=== PATIENT | female | born 1975 | race African-American/Black ===

== ENCOUNTER 2018-07-14 15:56 | Emergency (ER) | payer OTHER ==
[2018-07-14] MEDS ORDERED: AMMONIA INHALANTS 10 AMPUL/BOX IH ONE (16:51)
[2018-07-14] MEDS ORDERED: LORAZEPAM INJ 2 MG/1 ML VIAL IV ONE ×2 (17:20→19:09)
[2018-07-14] MEDS ORDERED: NORMAL SALINE 1000 ML 1,000 ML IV ONE ×3 (17:21→20:40)
--- NOTE | 2018-07-14 17:23 | ER Document Report ---
Addendum entered and electronically signed by KODAK FARIA MD 07/15/18 12:58: Discharge - Discharge Clinical Impression: History of depression, Pseudoseizure, Elevated CK, Seizure-like activity Condition: Good Disposition: HOME, SELF-CARE Instructions: Altered Mental Status ([facility]), New Seizure ([facility]) Additional Instructions: You will need evaluation by her primary care physician and possibly neurology before returning to work or driving. Please do not drive until cleared by your primary care physician and neurology. Follow up with your [id number] hours for further care or return to the ED IMMEDIATELY if symptoms worsen or you have any concerns. If you cannot afford to follow up with your primary care physician a list of low cost clinics have been provided at the end of your discharge papers as well. Most prescribed medications have multiple side effects. The safest thing to do is when filling your prescription speak to your pharmacist regarding possible interactions with your normal home medications and over the counter medications such as Ibuprofen, Tylenol, Benadryl. If you experience any symptoms that cause you discomfort or concern you should discontinue the medication immediately and return to the emergency room or call your primary care physician. Altered Mental Status An altered mental status is a change in the normal functioning of the brain. This alteration of function can range from minor decreased brain function with some forgetfulness and confusion to complete loss of consciousness and coma. There are many possible causes of an altered mental status and include brain injuries such as trauma or strokes, problems with oxygen supply to the brain, fever and infections of the brain and/or elsewhere in the body, metabolic abnormalities such as low or high blood sugar, overdoses or excessive medication ingestion, and mental and psychiatric illnesses. Sometimes the altered mental status resolves and a definite cause is not determined. If a cause for your altered mental status was found, it has likely been corrected. Your evaluation has not shown any condition that requires that you be admitted to the hospital. It is believed that you are safe to leave and return to your home. If you have a return of your symptoms, you should return for re-evaluation. Prescriptions: Ondansetron [Zofran Odt 4 mg Tablet] 1 - 2 tab PO Q4H PRN #15 tab.rapdis PRN Reason: For Nausea/Vomiting Addendum entered and electronically signed by KODAK FARIA MD 07/15/18 12:01: Discharge - Discharge Clinical Impression: History of depression, Pseudoseizure, Elevated CK, Seizure-like activity Condition: Good Disposition: HOME, SELF-CARE Instructions: Altered Mental Status ([facility]), New Seizure ([facility]) Additional Instructions: You will need evaluation by her primary care physician and possibly neurology be fore returning to work or driving. Please do not drive until cleared by your primary care physician and neurology. Follow up with your [id number] hours for further care or return to the ED IMMEDIATELY if symptoms worsen or you have any concerns. If you cannot afford to follow up with your primary care physician a list of low cost clinics have been provided at the end of your discharge papers as well. Most prescribed medications have multiple side effects. The safest thing to do is when filling your prescription speak to your pharmacist regarding possible interactions with your normal home medications and over the counter medications such as Ibuprofen, Tylenol, Benadryl. If you experience any symptoms that cause you discomfort or concern you should discontinue the medication immediately and return to the emergency room or call your primary care physician. Altered Mental Status An altered mental status is a change in the normal functioning of the brain. This alteration of function can range from minor decreased brain function with some forgetfulness and confusion to complete loss of consciousness and coma. There are many possible causes of an altered mental status and include brain injuries such as trauma or strokes, problems with oxygen supply to the brain, fever and infections of the brain and/or elsewhere in the body, metabolic ab normalities such as low or high blood sugar, overdoses or excessive medication ingestion, and mental and psychiatric illnesses. Sometimes the altered mental status resolves and a definite cause is not determined. If a cause for your altered mental status was found, it has likely been corrected. Your evaluation has not shown any condition that requires that you be admitted to the hospital. It is believed that you are safe to leave and return to your home. If you have a return of your symptoms, you should return for re-evaluation. Addendum entered and electronically signed by COLE BOSWELL LCSWA 07/15/18 10:13: Discharge - Discharge Clinical Impression: History of depression, Pseudoseizure, Elevated CK, Seizure-like activity Condition: Good Disposition: HOME, SELF-CARE Instructions: Altered Mental Status ([facility]), New Seizure ([facility]) Additional Instructions: You will need evaluation by her primary care physician and possibly neurology before returning to work or driving. Please do not drive until cleared by your primary care physician and neurology. Follow up with your [id number] hours for further care or return to the ED IMMEDIATELY if symptoms worsen or you have any concerns. If you cannot afford to follow up with your primary care physician a list of low cost clinics have been provided at the end of your discharge papers as well. Most prescribed medications have multiple side effects. The safest thing to do is when filling your prescription speak to your pharmacist regarding possible interactions with your normal home medications and over the counter medications such as Ibuprofen, Tylenol, Benadryl. If you experience any symptoms that cause you discomfort or concern you should discontinue the medication immediately and return to the emergency room or call your primary care physician. Altered Mental Status An altered mental status is a change in the normal functioning of the brain. This alteration of function can range from minor decreased brain function with some forgetfulness and confusion to complete loss of consciousness and coma. There are many possible causes of an altered mental status and include brain injuries such as trauma or strokes, problems with oxygen supply to the brain, fever and infections of the brain and/or elsewhere in the body, metabolic abnormalities such as low or high blood sugar, overdoses or excessive medication ingestion, and mental and psychiatric illnesses. Sometimes the altered mental status resolves and a definite cause is not determined. If a cause for your altered mental status was found, it has likely been corrected. Your evaluation has not shown any condition that requires that you be admitted to the hospital. It is believed that you are safe to leave and return to your home. If you have a return of your symptoms, you should return for re-evaluation. Original Note: ED General - General Chief Complaint: Probable Seizure Stated Complaint: POSSIBLE SEIZURE Time Seen by Provider: 07/14/18 17:04 Mode of Arrival: Medic Information source: Patient, Relative, Friend, [facility] Records Notes: 42-year-old female with depression (currently noncompliant with her depression medication) presents via EMS from school where she displayed altered mental stat us, jerking-like movements. Patient's boss is at the bedside and states that just after walking the kids out to the bus she was leaning against the wall when 1 of her coworkers noted that she did not appear well. Patient confirmed this and then lowered herself to the ground. Witness states that the patient did not hit her head. Patient was having full body jerking. She does report recent upper respiratory infection for which she started doxycycline. Patient has no psychiatric history. Upon my arrival into the room patient is alert, awake and states that she has a headache. Patient reports that she has had a headache intermittently for 3 weeks and describes it as a "sinus headache". She admits to nasal congestion, rhinorrhea, sore throat. - HPI Onset: Just prior to arrival Onset/Duration: Sudden Quality of pain: Achy, Throbbing Severity: Mild Associated symptoms: Nonproductive cough, Headache. denies: Diarrhea, Hurts to breath, Nausea, Vomiting, Shortness of breath Exacerbated by: Denies Relieved by: Denies Similar symptoms previously: No Recently seen / treated by doctor: No - Related Data Allergies/Adverse Reactions: hydrocodone Allergy (Verified 07/14/18 15:59) Penicillins Allergy (Verified 07/14/18 15:59) Sulfa (Sulfonamide Antibiotics) Allergy (Verified 07/14/18 15:59) Past Medical History - General Information source: Patient, Relative, [facility] Records - Social History Smoking Status: Never Smoker Frequency of alcohol use: None Drug Abuse: None Lives with: Family, Spouse/Significant other Family History: Reviewed & Not Pertinent Patient has suicidal ideation: No Patient has homicidal ideation: No - Medical History Medical History: Negative Review of Systems - Review of Systems Notes: REVIEW OF SYSTEMS: CONSTITUTIONAL : Denies fever, chills, or sweats. + recent illness. Denies weight loss, recent hospitalizations. EENT: Denies visual changes, eye pain. Denies sore throat, oral lesions, difficulty swallowing. CARDIOVASCULAR: Denies chest pain. Denies palpitations. Denies lower extremity edema. RESPIRATORY: Denies cough. Denies shortness of breath, wheezing. GASTROINTESTINAL: Denies abdominal pain or distention. Denies nausea, vomiting, or diarrhea. Denies blood in vomitus, stools, or per rectum. Denies black, tarry stools. Denies constipation. GENITOURINARY: Denies difficulty urinating, painful urination, frequency, blood in urine, or vaginal discharge. MUSCULOSKELETAL: Denies back or neck pain or stiffness. Denies joint pain or swelling. SKIN: Denies rash, lesions or sores. HEMATOLOGIC : Denies easy bruising or bleeding. LYMPHATIC: Denies swollen glands. NEUROLOGICAL: Denies confusion or altered mental status. Denies loss of consciousness. Denies dizziness or lightheadedness. + Headache. denies weakness or paralysis. Denies problems difficulty with ambulation, slurred speech. Denies sensory loss, numbness, or tingling. Denies seizures. PSYCHIATRIC: Denies anxiety or stress. Denies depression, suicidal ideation, or homicidal ideation. Denies visual or auditory hallucinations. Physical Exam - Vital signs Vitals: Temp Pulse Resp BP Pulse Ox 98.5 F 94 18 119/64 99 07/14/18 15:58 07/14/18 15:58 07/14/18 15:58 07/14/18 15:58 07/14/18 15:58 - Notes Notes: PHYSICAL EXAMINATION: GENERAL: Alert, awake well-appearing, well-nourished and in no acute distress. HEAD: Atraumatic, normocephalic. EYES: Pupils equal round and reactive to light, extraocular movements intact, conjunctiva are normal. ENT: Nares patent, oropharynx clear without exudates. Moist mucous membranes. NECK: Normal range of motion, supple without lymphadenopathy LUNGS: Breath sounds clear to auscultation bilaterally and equal. No wheezes rales or rhonchi. HEART: Regular rate and rhythm without murmurs ABDOMEN: Soft, nontender, nondistended abdomen. No guarding, no rebound. No masses appreciated. Female : deferred Musculoskeletal: Normal range of motion, no pitting or edema. No cyanosis. NEUROLOGICAL: Cranial nerves grossly intact. Normal speech, normal gait. Normal sensory, motor exams. Intermittent episodes of full body shaking with immediate return to normal, speaking, following commands. PSYCH: Normal mood, normal affect. SKIN: Warm, Dry, normal turgor, no rashes or lesions noted. Course - Re-evaluation Re-evalutation: 07/14/18 20:21 Laboratory 07/14/18 07/14/18 07/14/18 16:54 16:54 18:28 WBC 11.9 H RBC 5.17 Hgb 14.0 Hct 40.1 MCV 78 L MCH 27.0 MCHC 34.9 RDW 13.5 Plt Count 201 Seg Neutrophils % 77.1 Lymphocytes % 17.3 Monocytes % 4.8 Eosinophils % 0.6 Basophils % 0.2 Absolute Neutrophils 9.2 H Absolute Lymphocytes 2.1 Absolute Monocytes 0.6 Absolute Eosinophils 0.1 Absolute Basophils 0.0 Sodium Potassium Chloride Carbon Dioxide Anion Gap BUN Creatinine Est GFR ( Amer) Est GFR (Non-Af Amer) Glucose Calcium Total Bilirubin Direct Bilirubin Neonat Total Bilirubin Neonat Direct Bilirubin Neonat Indirect Bili AST ALT Alkaline Phosphatase Creatine Kinase Total Protein Albumin Beta HCG, Quant Total Beta HCG Urine Color STRAW Urine Appearance CLEAR Urine pH 6.0 Ur Specific [place] 1.010 Urine Protein NEGATIVE Urine Glucose (UA) NEGATIVE Urine Ketones NEGATIVE Urine Blood NEGATIVE Urine Nitrite NEGATIVE Urine Bilirubin NEGATIVE Urine Urobilinogen NEGATIVE Ur Leukocyte Esterase NEGATIVE Urine WBC (Auto) 1 Squamous Epi Cells Auto 2 Urine Ascorbic Acid NEGATIVE Urine HCG, Qual NEGATIVE Urine Opiates Screen NEGATIVE Urine Methadone Screen NEGATIVE Ur Barbiturates Screen NEGATIVE Ur Phencyclidine Scrn NEGATIVE Ur Amphetamines Screen NEGATIVE U Benzodiazepines Scrn NEGATIVE Urine Cocaine Screen NEGATIVE U Marijuana (THC) Screen NEGATIVE 07/14/18 18:28 WBC RBC Hgb Hct MCV MCH MCHC RDW Plt Count Seg Neutrophils % Lymphocytes % Monocytes % Eosinophils % Basophils % Absolute Neutrophils Absolute Lymphocytes Absolute Monocytes Absolute Eosinophils Absolute Basophils Sodium 140.8 Potassium 4.2 Chloride 109 H Carbon Dioxide 21 L Anion Gap 11 BUN 12 Creatinine 0.81 Est GFR ( Amer) > 60 Est GFR (Non-Af Amer) > 60 Glucose 86 Calcium 8.6 Total Bilirubin 0.4 Direct Bilirubin 0.3 Neonat Total Bilirubin Not Reportable Neonat Direct Bilirubin Not Reportable Neonat Indirect Bili Not Reportable AST 42 H ALT 64 H Alkaline Phosphatase 81 Creatine Kinase 1097 H Total Protein 7.0 Albumin 4.0 Beta HCG, Quant < 2.39 Total Beta HCG NEGATIVE Urine Color Urine Appearance Urine pH Ur Specific [place] Urine Protein Urine Glucose (UA) Urine Ketones Urine Blood Urine Nitrite Urine Bilirubin Urine Urobilinogen Ur Leukocyte Esterase Urine WBC (Auto) Squamous Epi Cells Auto Urine Ascorbic Acid Urine HCG, Qual Urine Opiates Screen Urine Methadone Screen Ur Barbiturates Screen Ur Phencyclidine Scrn Ur Amphetamines Screen U Benzodiazepines Scrn Urine Cocaine Screen U Marijuana (THC) Screen Head CT 07/14/18 17:19 IMPRESSION: NORMAL BRAIN CT WITHOUT CONTRAST. EVIDENCE OF ACUTE STROKE: NO. Temp Pulse Resp BP Pulse Ox 98.5 F 94 32 H 109/72 97 07/14/18 15:58 07/14/18 15:58 07/14/18 19:01 07/14/18 19:01 07/14/18 19:01 Patient declining evaluation by behavioral health. 07/14/18 20:37 at the bedside and patient now agreeable to behavioral health evaluation and patient now agreeable to behavioral health evaluation in the morning. 42-year-old female with a history of depression compliant with her depression medication presents via EMS after episodes of full body jerking, altered mental status. Vital signs reviewed upon arrival and patient is mildly tachycardic. She is alert, awake and without any neuro deficits. I witnessed patient's full body jerking which lasted approximately 10 seconds with immediate return to a normal baseline with immediately speak clearly, following commands. and patient's boss is at the bedside. I did explain to both the patient and her that I do not believe this is a true seizure, these are brief, episodes of tonic clonic movement with eyes open, no confusion,respiratory depression, urinary incontinence, tongue laceration. Nothing on her evaluyation indicates, infection, encephalopathy, true seizure, brain mass, bleed. Patient does admit to increased stress at home and at work. Denies any prior similar symptoms. CT of the brain was obtained and showed no acute process. CBC is without leukocytosis or anemia. CMP does show mild elevation in the patient's LFTs. CK is mildly elevated likely secondary to episodes of shaking. Patient has received IV fluids, Zofran and IV Ativan. Reports feeling better and giving me thumbs up after receiving ativan. Patient intitially refusing behavioral health eval but not agrees. Consult for behavioral health was placed. Patient is voluntary and can be discharge at any time. 07/15/18 00:42 - Vital Signs Vital signs: Temp Pulse Resp BP Pulse Ox 98.5 F 94 26 H 110/69 96 07/14/18 15:58 07/14/18 15:58 07/14/18 22:01 07/14/18 22:01 07/14/18 22:01 - Laboratory Result Diagrams: 07/14/18 18:28 07/14/18 18:28 Laboratory results interpreted by me: 07/14/18 07/14/18 18:28 18:28 WBC 11.9 H MCV 78 L Absolute Neutrophils 9.2 H Chloride 109 H Carbon Dioxide 21 L AST 42 H ALT 64 H Creatine Kinase 1097 H - Diagnostic Test Radiology reviewed: Image reviewed, Reports reviewed Discharge - Discharge Clinical Impression: History of depression, Pseudoseizure, Elevated CK, Seizure-like activity Condition: Good Disposition: OTHER Instructions: New Seizure ([facility]), Altered Mental Status ([facility]) Additional Instructions: You will need evaluation by her primary care physician and possibly neurology before returning to work or driving. Please do not drive until cleared by your primary care physician and neurology. Follow up with your [id number] hours for further care or return to the ED IMMEDIATELY if symptoms worsen or you have any concerns. If you cannot afford to follow up with your primary care physician a list of low cost clinics have been provided at the end of your dis charge papers as well. Most prescribed medications have multiple side effects. The safest thing to do is when filling your prescription speak to your pharmacist regarding possible interactions with your normal home medications and over the counter medications such as Ibuprofen, Tylenol, Benadryl. If you experience any symptoms that cause you discomfort or concern you should discontinue the medication immediately and return to the emergency room or call your primary care physician. Altered Mental Status An altered mental status is a change in the normal functioning of the brain. This alteration of function can range from minor decreased brain function with some forgetfulness and confusion to complete loss of consciousness and coma. There are many possible causes of an altered mental status and include brain injuries such as trauma or strokes, problems with oxygen supply to the brain, fever and infections of the brain and/or elsewhere in the body, metabolic abnormalities such as low or high blood sugar, overdoses or excessive medication ingestion, and mental and psychiatric illnesses. Sometimes the altered mental status resolves and a definite cause is not determined. If a cause for your altered mental status was found, it has likely been katia ected. Your evaluation has not shown any condition that requires that you be admitted to the hospital. It is believed that you are safe to leave and return to your home. If you have a return of your symptoms, you should return for re- evaluation.
--- NOTE | 2018-07-14 18:27 | RADIOLOGY REPORT (SQ) ---
EXAM DESCRIPTION: CT HEAD WITHOUT COMPLETED DATE/TIME: 07/14/2018 6:16 pm REASON FOR STUDY: jerking COMPARISON: None. TECHNIQUE: Axial images acquired through the brain without intravenous contrast. Images reviewed wi th bone, brain and subdural windows. Additional sagittal and coronal reconstructions were generated. Images stored on PACS. All CT scanners at this facility use dose modulation, iterative reconstruction, and/or weight based d osing when appropriate to reduce radiation dose to as low as reasonably achievable (ALARA). [facility]: Dose Right [facility]: CareDose [facility]: Dose Right [facility]: Teradose 4D [facility]: iSites RADIATION DOSE: CT Rad equipment meets quality standard of care and radiation dose reduction techniq ues were employed. CTDIvol: 53.2 mGy. DLP: 1017 mGy-cm. mGy. LIMITATIONS: None. FINDINGS: VENTRICLES: Normal size and contour. CEREBRUM: No masses. No hemorrhage. No midline shift. No evidence for acute infarction. Normal gra y/white matter differentiation. No areas of low density in the white matter. CEREBELLUM: No masses. No hemorrhage. No alteration of density. No evidence for acute infarction. EXTRAAXIAL SPACES: No fluid collections. No masses. ORBITS AND GLOBE: No intra- or extraconal masses. Normal contour of globe without masses. CALVARIUM: No fracture. PARANASAL SINUSES: No fluid or mucosal thickening. SOFT TISSUES: No mass or hematoma. OTHER: No other significant finding. IMPRESSION: NORMAL BRAIN CT WITHOUT CONTRAST. EVIDENCE OF ACUTE STROKE: NO. COMMENT: Quality ID # [id number]: Final reports with documentation of one or more dose reduction techniques (e.g., Automated exposure control, adjustment of the mA and/or kV according to patient size, use of iterative reconstruction technique) TECHNICAL DOCUMENTATION: JOB ID: [id number] [employer]- All Rights Reserved Reading location - IP/workstation name: [email or web address]
[2018-07-14 18:28] LABS: APPEARANCE,URINE CLEAR; BILIRUBIN,URINE NEGATIVE (NEGATIVE); COLOR,URINE STRAW; GLUCOSE, URINE NEGATIVE (NEGATIVE); KETONES,URINE NEGATIVE (NEGATIVE); LEUKOCYTE ESTERASE,URINE NEGATIVE (NEGATIVE); NITRITE,URINE NEGATIVE (NEGATIVE); PROTEIN,URINE NEGATIVE (NEGATIVE); UROBILINOGEN,URINE NEGATIVE mg/dL (<2.0)
[2018-07-14 18:42] LABS: URINE AMPHETAMINES SCREEN NEGATIVE; URINE BARBITURATES SCREEN NEGATIVE; URINE BENZODIAZEPINES SCREEN NEGATIVE; URINE COCAINE SCREEN NEGATIVE; URINE MARIJUANA (THC) SCREEN NEGATIVE; URINE METHADONE SCREEN NEGATIVE; URINE PHENCYCLIDINE SCREEN NEGATIVE
[2018-07-14 18:43] LABS: ABSOLUTE EOSINOPHILS # (AUTO) 0.1 10^3/uL (0.0-0.6); ABSOLUTE LYMPHOCYTES (AUTO) 2.1 10^3/uL (0.5-4.7); ABSOLUTE MONOCYTES (AUTO) 0.6 10^3/uL (0.1-1.4); ABSOLUTE NEUT (AUTO) 9.2 10^3/uL (1.7-8.2); BASOPHILS % (AUTO) 0.2 % (0-2); EOSINOPHILS % (AUTO) 0.6 % (0-6); HEMATOCRIT 40.1 % (36.0-47.0); LYMPHOCYTES % (AUTO) 17.3 % (13-45); MEAN CORPUSCULAR HGB CONC 34.9 g/dL (32.0-36.0); MEAN CORPUSCULAR VOLUME 78 fl (80-97); MONOCYTES % (AUTO) 4.8 % (3-13); PLATELET COUNT 201 10^3/uL (150-450); RED BLOOD COUNT 5.17 10^6/uL (3.72-5.28); RED CELL DISTRIBUTION WIDTH 13.5 % (11.5-14.0); SEGMENTED NEUTROPHILS % (AUTO) 77.1 % (42-78); TOTAL CELLS COUNTED % (AUTO) 100 %; WHITE BLOOD COUNT 11.9 10^3/uL (4.0-10.5)
[2018-07-14 19:02] LABS: ALANINE AMINOTRANSFERASE 64 U/L (9-52); ALKALINE PHOSPHATASE 81 U/L (38-126); ANION GAP 11 (5-19); ASPARTATE AMINO TRANSFERASE 42 U/L (14-36); BILIRUBIN,DIRECT 0.3 mg/dL (0.0-0.4); BILIRUBIN,TOTAL 0.4 mg/dL (0.2-1.3); BLOOD UREA NITROGEN 12 mg/dL (7-20); CALCIUM 8.6 mg/dL (8.4-10.2); CARBON DIOXIDE 21 mmol/L (22-30); CHLORIDE 109 mmol/L (98-107); CREATINE KINASE 1097 U/L (30-135); GLUCOSE 86 mg/dL (75-110); POTASSIUM 4.2 mmol/L (3.6-5.0); SODIUM 140.8 mmol/L (137-145)
[2018-07-14] MEDS ORDERED: NORMAL SALINE 250 ML IV PRN ×2 (20:01)
[2018-07-14] MEDS ORDERED: ONDANSETRON HCL INJ/PF 4 MG/2 ML SDV IV ONE (20:13)
[2018-07-14] MEDS ORDERED: LORAZEPAM 0.5 MG TABLET PO PRN (20:36)
--- NOTE | 2018-07-14 21:34 | EKG REPORT ---
SEVERITY:- BORDERLINE ECG - SINUS TACHYCARDIA PROBABLE LEFT ATRIAL ABNORMALITY : Confirmed by: Teo Thomas MD 14-Jul-2018 21:32:52
[2018-07-15 11:21] VITALS: BP 114/65
--- NOTE | 2018-07-15 11:59 | ER Document Report ---
Doctor's Note Notes: 07/15/18 11:56 Rounds: Chart reviewed and patient interviewed. Patient being evaluated for possible pseudoseizures. She is been experiencing anxiety. Patient has no history of seizures. Did not bite her tongue or lose control of her bladder or bowels. She is had a headache for over 3 weeks. Work-up including CT scan of all been normal. Patient's vital signs are intact. Lab studies are unremarkable except for a CPK of 1097. This could be due to seizures or pseudoseizures. Patient is going to be advised to drink plenty fluids. Return if she sees blood in her urine. Appears to be medically stable for transfer or discharge. Bhavani Abdullahi MD
== END 2018-07-15 12:14 | disposition home or self-care (01) ==
LOC: ER 15:56
DX: R56.9 Unspecified convulsions (principal); F41.9 Anxiety disorder, unspecified; R79.89 Other specified abnormal findings of blood chemistry; Z88.0 Allergy status to penicillin; Z88.2 Allergy status to sulfonamides; Z88.6 Allergy status to analgesic agent
CPT/HCPCS: 93005; 96376; 99285; 96361; 96374; 96375; 36415; 82550; 84702; 85025; 81025; 80053; 81001; 80307; 70450; 93010; J2060; J2405; J7030